=== PATIENT | female | born 1990 | race Caucasian/White ===

== ENCOUNTER → 2024-02-16 14:56 | Outpatient (REF) | payer OTHER, SELFPAY | LOC: PNTC 14:56 | PROVIDERS: ATTENDING PHYSICIAN Nurse Practitioner Family | DX: Z34.91 Encounter for supervision of normal pregnancy, unspecified, first trimester (principal); Z34.82 Encounter for supervision of other normal pregnancy, second trimester | CPT/HCPCS: 76801; 76813 ==

== ENCOUNTER → 2024-04-06 07:58 | Outpatient (REF) | payer OTHER, SELFPAY | LOC: PNTC 07:58 | PROVIDERS: ATTENDING PHYSICIAN Obstetrics & Gynecology | DX: O09.529 Supervision of elderly multigravida, unspecified trimester (principal); O34.219 Maternal care for unspecified type scar from previous cesarean delivery; O31.0 Papyraceous fetus | CPT/HCPCS: 76811 ==

== ENCOUNTER → 2024-05-24 07:27 | Outpatient (REF) | payer OTHER, SELFPAY | LOC: PNTC 07:27 | PROVIDERS: ATTENDING PHYSICIAN Obstetrics & Gynecology | DX: Q07.00 Arnold-Chiari syndrome without spina bifida or hydrocephalus (principal); O34.219 Maternal care for unspecified type scar from previous cesarean delivery; O41.00X0 Oligohydramnios, unspecified trimester, not applicable or unspecified | CPT/HCPCS: 76816 ==

== ENCOUNTER → 2024-05-31 14:55 | Outpatient (REF) | payer OTHER, SELFPAY | LOC: PNTC 14:55 | PROVIDERS: ATTENDING PHYSICIAN Obstetrics & Gynecology | DX: O09.512 Supervision of elderly primigravida, second trimester (principal) | CPT/HCPCS: 36415; 86850; 86900; 86901; J2790 ==

== ENCOUNTER → 2024-07-06 07:24 | Outpatient (REF) | payer OTHER, SELFPAY | LOC: PNTC 07:24 | PROVIDERS: ATTENDING PHYSICIAN Obstetrics & Gynecology | DX: O35.00X0 Maternal care for (suspected) central nervous system malformation or damage in fetus, unspecified, not applicable or unspecified (principal); O34.219 Maternal care for unspecified type scar from previous cesarean delivery; O41.00X0 Oligohydramnios, unspecified trimester, not applicable or unspecified | CPT/HCPCS: 76816 ==

== ENCOUNTER 2024-07-08 12:02 | Observation (INO) | payer OTHER, SELFPAY ==
[2024-07-08 12:14] VITALS: BP 121/67; BMI 32.3
[2024-07-08 13:11] LABS: Hematocrit 35.5 % (37.0-47.0); Hemoglobin 12.8 g/dL (12.0-16.0); Mean Corp Hgb Conc. 36.1 g/dL (33.0-37.0); Mean Corpuscular Hgb 31.8 pg (27.0-31.0); Mean Corpuscular Volume 88.1 fL (81.0-99.0); Mean Platelet Volume 10.2 fL (7.4-10.4); Platelet Count 219 10^3/uL (130-400); Red Blood Cell Count 4.03 10^6/uL (4.20-5.40); Red Cell Dist. Width 12.8 % (11.5-14.5); White Blood Cell Count 16.2 10^3/uL (4.8-10.8)
[2024-07-08 13:26] LABS: ALT (SGPT) 18 U/L (0-35); AST (SGOT) 27 U/L (14-36); Albumin 3.4 g/dl (3.5-5.0); Alkaline Phosphatase 108 U/L (38-126); Blood Urea Nitrogen 12 mg/dl (7-17); Calcium 9.9 mg/dl (8.4-10.2); Carbon Dioxide 23 mmol/L (22-30); Chloride 103 mmol/L (98-107); Estimated Creatinine Clearance > 125 ml/min; Glucose 88 mg/dl (70-99); Sodium 137 mmol/L (135-145); Total Bilirubin 0.3 mg/dl (0.2-1.3); Total Protein 6.1 g/dl (6.3-8.2); eGFR > 60.00
[2024-07-08 13:30] LABS: Urine Albumin Negative (Neg - Trace); Urine Bilirubin Negative (Negative); Urine Character Clear (Clear); Urine Color Yellow; Urine Glucose Negative (Negative); Urine Ketone Negative (Negative); Urine Leukocyte Negative (Negative); Urine Nitrite Negative (Negative); Urine Occult Blood Negative (Negative); Urine Specific Gravity 1.015 (<1.030); Urine Urobilinogen Negative (Neg - 1+); Urine pH 6.5 (5.0-9.0)
[2024-07-08] MEDS: TYLENOL 1000 MG PO (14:21)
[2024-07-08 15:00] LABS: Protein/creatinine Ratio 0.1; Urine Protein 7 mg/dl
== END 2024-07-08 15:27 | disposition home or self-care (01) ==
LOC: LDRP 12:02
PROVIDERS: ADMITTING PHYSICIAN Obstetrics & Gynecology
DX: R10.9 Unspecified abdominal pain (principal); G93.5 Compression of brain; Z34.83 Encounter for supervision of other normal pregnancy, third trimester; Z3A.33 33 weeks gestation of pregnancy
CPT/HCPCS: 80053; 81003; 82570; 84156; 85027; 86850; 86870; 86900; 86901; G0378

== ENCOUNTER → 2024-07-27 08:00 | Outpatient (REF) | payer OTHER, SELFPAY | LOC: PNTC 08:00 | PROVIDERS: ATTENDING PHYSICIAN Obstetrics & Gynecology | DX: Q07.00 Arnold-Chiari syndrome without spina bifida or hydrocephalus (principal); O34.219 Maternal care for unspecified type scar from previous cesarean delivery; O41.00X0 Oligohydramnios, unspecified trimester, not applicable or unspecified | CPT/HCPCS: 76815 ==

== ENCOUNTER → 2024-08-03 07:33 | Outpatient (REF) | payer OTHER, SELFPAY | LOC: PNTC 07:33 | PROVIDERS: ATTENDING PHYSICIAN Obstetrics & Gynecology | DX: O41.00X0 Oligohydramnios, unspecified trimester, not applicable or unspecified (principal) | CPT/HCPCS: 59025; 76815 ==

== ENCOUNTER → 2024-08-10 07:58 | Outpatient (REF) | payer OTHER, SELFPAY | LOC: PNTC 07:58 | PROVIDERS: ATTENDING PHYSICIAN Obstetrics & Gynecology | DX: O09.529 Supervision of elderly multigravida, unspecified trimester (principal); O09.293 Supervision of pregnancy with other poor reproductive or obstetric history, third trimester | CPT/HCPCS: 59025; 76815 ==

== ENCOUNTER → 2024-08-17 11:01 | Outpatient (REF) | payer OTHER, SELFPAY | LOC: PNTC 11:01 | PROVIDERS: ATTENDING PHYSICIAN Obstetrics & Gynecology | DX: O09.529 Supervision of elderly multigravida, unspecified trimester (principal); O09.293 Supervision of pregnancy with other poor reproductive or obstetric history, third trimester | CPT/HCPCS: 59025; 76815 ==

== ENCOUNTER 2024-08-23 05:43 | Inpatient (IN) | payer OTHER, SELFPAY ==
[2024-08-23 06:40] VITALS: BP 125/74; BMI 33.9
[2024-08-23 07:17] LABS: Hematocrit 36.8 % (37.0-47.0); Hemoglobin 12.7 g/dL (12.0-16.0); Mean Corp Hgb Conc. 34.5 g/dL (33.0-37.0); Mean Corpuscular Hgb 31.1 pg (27.0-31.0); Platelet Count 202 10^3/uL (130-400); Red Blood Cell Count 4.09 10^6/uL (4.20-5.40); Red Cell Dist. Width 13.2 % (11.5-14.5); White Blood Cell Count 11.6 10^3/uL (4.8-10.8)
[2024-08-23] MEDS: ANCEF 10 IV (07:37)
[2024-08-23] MEDS: BICITRA 30 ML PO (07:38)
[2024-08-23] MEDS: TYLENOL 1000 MG PO (07:38)
[2024-08-23] MEDS: LR 1000 IV (07:40)
--- NOTE | 2024-08-23 07:45 | W.SUR.PREOP ---
Pre-Operative Surgical Note
-
I have examined this patient prior to the performance of the scheduled procedure.
The patient's condition is unchanged from the time of the current History and
Physical and the patient is able to undergo the scheduled procedure.
[2024-08-23] MEDS: TORADOL 15 MG IV (20:30)
[2024-08-24] MEDS: TORADOL 15 MG IV ×2 (03:35→08:44)
[2024-08-24 05:27] LABS: Hematocrit 32.2 % (37.0-47.0); Hemoglobin 10.9 g/dL (12.0-16.0); Mean Corp Hgb Conc. 33.9 g/dL (33.0-37.0); Mean Corpuscular Hgb 31.2 pg (27.0-31.0); Mean Corpuscular Volume 92.3 fL (81.0-99.0); Mean Platelet Volume 11.3 fL (7.4-10.4); Platelet Count 165 10^3/uL (130-400); Red Blood Cell Count 3.49 10^6/uL (4.20-5.40); Red Cell Dist. Width 13.4 % (11.5-14.5); White Blood Cell Count 16.3 10^3/uL (4.8-10.8)
[2024-08-24] MEDS: PRENATAL PLUS 1 TABLET PO (08:44)
[2024-08-24] MEDS: RHOGAM 300 MCG IM (11:58)
[2024-08-24] MEDS: SENOKOT-S 1 TABLET PO (14:35)
[2024-08-24] MEDS: TYLENOL 650 MG PO ×2 (14:35→22:53)
[2024-08-24] MEDS: MOTRIN 600 MG PO ×2 (14:35→22:53)
--- NOTE | 2024-08-24 15:49 | W.PN.ANS.POP ---
Anesthesia Post Operative
- Anesthesia Post Op Note
Vital Signs Stable-See Nursing Note: Yes
Airway Patent: Yes
Adequate Pain Control: Yes
Change in Mental Status: No
Current Postoperative Nausea & Vomiting: No
Anesthesia Complications: No
General Anesthetic Recall: No
Unplanned Admission: No
Post Op Hydration Adequate: Yes
[2024-08-24] MEDS: PERCOCET 5/325 1 TABLET PO (16:25)
[2024-08-25] MEDS: MOTRIN 600 MG PO ×2 (08:11→14:02)
[2024-08-25] MEDS: TYLENOL 650 MG PO ×2 (08:11→14:02)
[2024-08-25] MEDS: PRENATAL PLUS 1 TABLET PO (08:11)
[2024-08-27 11:18] LABS: Syphilis/T. pallidum Ab Reflex Negative (Negative)
== END 2024-08-25 14:31 | disposition home or self-care (01) | DRG 787 ==
LOC: LDRP 05:43
PROVIDERS: ADMITTING PHYSICIAN Obstetrics & Gynecology
PROC: 10D00Z1 Extraction of Products of Conception, Low, Open Approach (ICD-10-PCS; 2024-08-23)
PROC: 3E0234Z Introduction of Serum, Toxoid and Vaccine into Muscle, Percutaneous Approach (ICD-10-PCS; 2024-08-24)
PROC: 3E0334Z Introduction of Serum, Toxoid and Vaccine into Peripheral Vein, Percutaneous Approach (ICD-10-PCS; 2024-08-24)
DX: O34.211 Maternal care for low transverse scar from previous cesarean delivery (principal); O99.354 Diseases of the nervous system complicating childbirth; Q07.00 Arnold-Chiari syndrome without spina bifida or hydrocephalus; O43.123 Velamentous insertion of umbilical cord, third trimester; Z3A.39 39 weeks gestation of pregnancy; Z37.0 Single live birth; O77.0 Labor and delivery complicated by meconium in amniotic fluid; O26.893 Other specified pregnancy related conditions, third trimester; Z67.41 Type O blood, Rh negative
CPT/HCPCS: 85027; 85461; 86780; 86850; 86900; 86901; J2790

== ENCOUNTER 2025-05-23 18:21 | Emergency (ER) | payer OTHER, SELFPAY ==
[2025-05-23 18:22] VITALS: BP 128/86
--- NOTE | 2025-05-23 19:44 | ED.GENMED ---
History of Present Illness
General
Chief Complaint: Throat Problem
Source: patient
Exam Limitations: none
Time Seen by Provider: 05/23/25 19:43
Nursing documentation reviewed up to this point in time: agreed with
History of Present Illness
History of Present Illness:
Note:
CHIEF COMPLAINT(S)
Throat pain, vomiting, facial redness and puffiness.
HISTORY OF PRESENT ILLNESS
The patient is a 35-year-old female who is currently nine and a half weeks . She presents with a sore throat and vomiting. The symptoms have led her to seek medical attention previously, where she was dismissed as having morning sickness.
Consultations at a separate facility resulted in a diagnosis of bronchitis, and she was prescribed Azithromycin (Z-pack) and Dextromethorphan (Robitussin). The patient reports facial redness and puffiness, which started a couple of days ago. She
suspects a possible viral infection. The patient mentions that initial testing for COVID-19 and influenza was negative, and an X-ray was not performed due to her .
SOCIAL DETERMINANTS AFFECTING HEALTH
The patient is currently experiencing the additional stress associated with and possible concerns about medication interactions and diagnostic tests related to her condition.
ALLERGIES
The patient has no drug allergies reported.
REVIEW OF SYSTEMS
- Gastrointestinal: The patient reports vomiting.
- Respiratory: The patient was previously diagnosed with bronchitis.
- Oropharyngeal: Sore throat reported.
- Integumentary: Facial redness and puffiness observed.
PHYSICAL EXAM
General: No acute distress noted.
Skin: Warm, dry, facial redness and puffiness observed.
Respiratory: Breathing is non-labored.
PLAN
1. Administer intravenous fluids for dehydration and to improve overall condition.
2. Initiate safe breathing treatment considering .
3. Start systemic corticosteroids if necessary, after evaluating response to the breathing treatment.
4. Avoid routine X-ray due to .
5. Order laboratory tests to assess electrolyte levels and overall health.
DIFFERENTIAL DIAGNOSIS
The Differential Diagnosis includes, in no particular order and is not limited to:
1. Viral Upper Respiratory Infection
2. Acute Bronchitis
3. Gastroesophageal Reflux Disease
4. -related Nausea and Vomiting
5. Potential Pneumonia
6. Sinusitis
7. Allergic Reactions
8. Influenza
9. Pharyngitis
10. Pneumonitis
SUMMARY OF ENCOUNTER
The patient, a 35-year-old female, presented with a sore throat, vomiting, facial redness, and puffiness. She is currently nine and a half weeks . Previous consultations suggested morning sickness and bronchitis, and she had been prescribed
Azithromycin and Dextromethorphan. Due to her , an ultrasound was conducted instead of an X-ray to avoid radiation exposure, and the findings were consistent with likely bronchitis. The patient was treated with acetaminophen and prescribed
prednisone to manage symptomatology safely during .
DISPOSITION
The patient is stable for discharge.
ASSESSMENT
Likely bronchitis during , facial redness and puffiness potentially related to viral infection or medication side effects.
PLAN
Administer intravenous fluids for dehydration associated with vomiting. Prescribe acetaminophen and prednisone, and continue the current course of azithromycin.
PATIENT EDUCATION AND COUNSELING
The patient was advised on the safe use of medications during and the importance of staying hydrated. She was also informed about the potential side effects of -related nausea and bronchitis symptoms.
FOLLOW-UP INSTRUCTIONS
Patient advised to follow up with primary care physician and [facility]IRONMENT[employer] COMPLIANCE OFFICER for ongoing monitoring of and symptom progression.
MEDICATION RECONCILIATION
- Acetaminophen
- Prednisone
- Azithromycin (Zithromax) to continue as previously prescribed.
MEDICAL DECISION MAKING
- Number and Complexity of Problems Addressed: Chronic conditions affecting care include and bronchitis. Differential diagnosis includes viral upper respiratory infection, acute bronchitis, gastroesophageal reflux disease,
-related nausea and vomiting, potential pneumonia, sinusitis, allergic reactions, influenza, pharyngitis, and pneumonitis.
- Data:
Category 1
Clinical information was reviewed, specifically with consideration of ultrasound findings due to .
- Risk:
Prescription medication was prescribed: acetaminophen and prednisone. Care affected by social determinants of health includes stress due to and concerns about medication interactions.
DIAGNOSIS
1. Bronchitis, unspecified (ICD-10: J40)
2. , first trimester (ICD-10: Z34.01)
Past History
Past History
ED Past Medical History: GERD and Other (UTI, Miscarriages, )
ED Past Surgical History: None and Gynecological (IVF, Pelvic floor surgery)
Social History
Tobacco: Non-smoker
Alcohol: None
Drug: None
Personal:
Living: with family
Phy Exam
Physical Exam
Physical Exam:
.
Course
Orders/Labs/Results
Orders:
Orders
05/23/25 19:57
IV Insert/Care/Rem.- Treatment PRN
US 1st Trimester Urgent
Reason For Exam: abdominal cramping 9.5 wks preg
05/23/25 19:58
Ipratropium/Albuterol Sulfate [Duoneb] 3 ml INH R NOW STA
Lactated Ringers [Lr] 1,000 ml IV BOLUS
05/23/25 20:59
Beta HCG Quantitative Urgent
Is this a screen?: No
Complete Blood Count/With Diff Urgent
Comprehensive Metabolic Panel Urgent
05/23/25 21:53
Dexamethasone Pf [Decadron] 10 mg PO NOW STA
05/23/25 23:15
Acetaminophen [Tylenol] 650 mg PO NOW STA
Abnormal Lab Results
05/23/25
20:59
WBC 14.5 H 10^3/uL
(4.8-10.8)
Hct 35.9 L %
(37.0-47.0)
Abs Immat Gran (auto) 0.1 H 10^3/uL
(0-0.05)
Absolute Neuts (auto) 11.7 H 10^3/uL
(1.4-6.5)
Absolute Monos (auto) 0.8 H 10^3/uL
(0.1-0.6)
Neutrophils % 81.1 H %
(42.2-75.2)
Lymphocytes % 12.6 L %
(20.5-51.1)
Sodium 132 L mmol/L
(135-145)
Glucose 102 H mg/dl
(70-99)
05/23/25 20:59
05/23/25 20:59
Vital Signs
Initial and Last Documented VS:
Initial Vital Signs
Temp Pulse Resp BP Pulse Ox
98.5 F 118 20 128/86 94
05/23/25 18:22 05/23/25 18:22 05/23/25 18:22 05/23/25 18:22 05/23/25 18:22
Last Documented Vital Signs
Temp Pulse Resp BP Pulse Ox
98.9 F 89 20 131/75 95
05/23/25 22:46 05/23/25 22:46 05/23/25 22:46 05/23/25 22:46 05/23/25 22:47
*Pulse Oximetry
SaO2: 94
Oxygen Mode of Delivery: Room air
Patient hypoxic: no
*Critical Care Note
Total Time (30-74mins, 75-104mins- exclusive of procedures): Not Applicable
ED Attending Note
-
Portions of this chart may have been created with voice recognition software.� Occasional wrong word or��sound alike� substitutions may have occurred due to the inherent limitations of voice recognition software.
Discharge Plan
Departure
Patient Disposition: Home (Routine Discharge)
Date of Disposition: 05/23/25
Time of Disposition: 23:33
Patient with high blood pressure during this ER visit?: No
Condition: Good
Discharge Problem:
Acute bronchitis, First trimester
Instructions: - The Third Month, Bronchitis in adults - ED (DC), BLOOD PRESSURE
Prescriptions:
New
prednisone 50 mg tablet
50 mg PO DAILY Qty: 5 0RF
No Action
Vitamin
1 tab PO DAILY
acetaminophen 325 mg Tablet
650 mg PO Q4HPRN PRN (Reason: mild pain) Qty: 0 0RF
sennosides-docusate sodium 8.6-50 mg Tablet
1 tab PO DAILYPRN PRN (Reason: constipation) Qty: 0 0RF
oxycodone-acetaminophen 5-325 mg Tablet
1 tab PO Q4HPRN PRN (Reason: moderate pain) Qty: 10 0RF
calcium carbonate [Calcium Antacid] 200 mg calcium (500 mg) Tablet,Chewable
400 mg PO Q6HPRN PRN (Reason: indigestion) Qty: 0 0RF
ibuprofen 600 mg Tablet
600 mg PO Q6HPRN PRN (Reason: cramps) Qty: 45 0RF
Referrals:
Milagros Rocha MD [Family Provider, Internal Medicine]
Jackie Bates DO [Active, Gynecology] - Call in 1-3 days for appt
Interventions
Interventions:
*Risk Screen - Suicide Last Done: 05/23/25 18:22
*General Assessment Last Done: 05/23/25 18:22
*ED- Fall Risk Assessment Last Done: 05/23/25 22:47
*ED COVID-19 Vaccine History Last Done: 05/23/25 22:47
*ED Influenza Vaccine History Last Done: 05/23/25 22:47
ED-EENT Assessment Last Done: 05/23/25 22:47
ED- Pulmonary Assessment Last Done: 05/23/25 22:47
Discharge Date and Time
Print Language: UKRAINIAN
[2025-05-23] MEDS: LR 1000 IV (21:04)
[2025-05-23] MEDS: DUONEB 3 ML INH (21:05)
[2025-05-23 21:09] LABS: Hematocrit 35.9 % (37.0-47.0); Hemoglobin 12.9 g/dL (12.0-16.0); Mean Corp Hgb Conc. 35.9 g/dL (33.0-37.0); Mean Corpuscular Volume 83.5 fL (81.0-99.0); Nucleated Red Blood Cells % 0 %; Platelet Count 205 10^3/uL (130-400); Red Cell Dist. Width 11.9 % (11.5-14.5)
[2025-05-23 21:24] LABS: ALT (SGPT) 18 U/L (0-35); AST (SGOT) 18 U/L (14-36); Albumin 4.1 g/dl (3.5-5.0); Alkaline Phosphatase 60 U/L (38-126); Blood Urea Nitrogen 9 mg/dl (7-17); Calcium 9.9 mg/dl (8.4-10.2); Carbon Dioxide 23 mmol/L (22-30); Chloride 103 mmol/L (98-107); Glucose 102 mg/dl (70-99); Potassium 3.9 mmol/L (3.5-5.1); Sodium 132 mmol/L (135-145); Total Protein 6.7 g/dl (6.3-8.2); eGFR > 60.00
[2025-05-23 22:28] LABS: Beta HCG Quantitative 139620.00 mIU/ml
[2025-05-23] MEDS: DECADRON 10 MG PO (22:44)
[2025-05-23 22:46] VITALS: BP 131/75
[2025-05-23] MEDS: TYLENOL 650 MG PO (23:26)
== END 2025-05-23 23:45 | disposition home or self-care (01) ==
LOC: EMR 18:21
PROVIDERS: EMERGENCY PHYSICIAN Emergency Medicine; FAMILY PHYSICIAN Emergency Medicine
DX: O99.511 Diseases of the respiratory system complicating pregnancy, first trimester (principal); J20.9 Acute bronchitis, unspecified; O99.281 Endocrine, nutritional and metabolic diseases complicating pregnancy, first trimester; E86.0 Dehydration; O99.611 Diseases of the digestive system complicating pregnancy, first trimester; K21.9 Gastro-esophageal reflux disease without esophagitis; Z3A.09 9 weeks gestation of pregnancy; Z88.1 Allergy status to other antibiotic agents; Z88.8 Allergy status to other drugs, medicaments and biological substances
CPT/HCPCS: 99284; 96360; 94640; 76801; 80053; 84702; 85025

== ENCOUNTER → 2025-05-31 10:32 | Outpatient (REF) | payer OTHER, SELFPAY | LOC: PNTC 10:32 | PROVIDERS: ATTENDING PHYSICIAN Student in an Organized Health Care Education/Training Program | DX: O36.80X0 Pregnancy with inconclusive fetal viability, not applicable or unspecified (principal) | CPT/HCPCS: 76801 ==

== ENCOUNTER → 2025-06-14 08:30 | Outpatient (REF) | payer OTHER, SELFPAY | LOC: PNTC 08:30 | PROVIDERS: ATTENDING PHYSICIAN Obstetrics & Gynecology | DX: Z36.0 Encounter for antenatal screening for chromosomal anomalies (principal); Z36.82 Encounter for antenatal screening for nuchal translucency | CPT/HCPCS: 76801; 76813 ==

== ENCOUNTER → 2025-06-17 08:10 | Outpatient (REF) | payer OTHER, SELFPAY | LOC: RAD 08:10 | PROVIDERS: ATTENDING PHYSICIAN Physician Assistant Medical | DX: R05.1 Acute cough (principal) | CPT/HCPCS: 71046 ==

== ENCOUNTER → 2025-08-09 13:35 | Outpatient (REF) | payer OTHER, SELFPAY | LOC: PNTC 13:35 | PROVIDERS: ATTENDING PHYSICIAN Obstetrics & Gynecology | DX: O09.522 Supervision of elderly multigravida, second trimester (principal); O34.211 Maternal care for low transverse scar from previous cesarean delivery | CPT/HCPCS: 76811; 76817 ==